=== PATIENT | male | born 2000 | race Caucasian/White ===

== ENCOUNTER 2019-04-12 17:09 | Emergency (ER) | payer BC ==
[2019-04-12 17:46] VITALS: BP 132/69
--- NOTE | 2019-04-12 17:57 | UC ---
Skin Complaint HPI - HPI Summary HPI Summary: 18-year-old male presents for multiple complaints. His first complaint is that he received multiple insect stings 2 days ago to his left upper arm, left shoulder, and right calf. States he has had an anaphylactic reaction in the past. States earlier today he felt a little lightheaded but is asymptomatic at present. Denies any swelling of the lips, tongue, throat, dysphagia, or difficulty breathing. The patient's second complaint is that he was recently notified by a new sexual partner who he had unprotected sex with 2 nights ago that she tested positive for chlamydia. He is requesting STI testing at this time. Denies abdominal pain, nausea, vomiting, dysuria, frequency, urgency, hematuria, testicular pain or swelling, penile drainage, or genital lesions. - History of Current Complaint Chief Complaint: UCGeneralIllness Time Seen by Provider: 04/12/19 17:31 Stated Complaint: BEE STINGS/SWELLING/PERSONAL Hx Obtained From: Patient Pain Intensity: 2 - Allergy/Home Medications Allergies/Adverse Reactions: Allergies Allergy/AdvReac Type Severity Reaction Status Date / Time bee venom protein (honey bee) Allergy Anaphylatic Verified 04/12/19 17:34 Shock Home Medications: Home Medications Ibuprofen TAB* [Advil TAB*] 400 mg PO Q6H PRN 04/12/19 [History Confirmed ] Riva-3 Fatty Acids [Fish Oil Concentrate] 1,000 mg PO DAILY 04/12/19 [History Confirmed 04/12/19] Root Powder 1 udc PO DAILY 04/12/19 [History Confirmed 04/12/19] diphenhydrAMINE HCl [Benadryl Allergy 25 MG CAP] 50 mg PO Q6H PRN 04/12/19 [ History Confirmed 04/12/19] PMH/Surg Hx/FS Hx/Imm Hx Previously Healthy: Yes - Denies significant PMH - Surgical History Surgical History: None Surgery Procedure, Year, and Place: nose sx - Family History Known Family History: Positive: Non-Contributory - Social History Occupation: Employed Full-time Lives: Alone Alcohol Use: Occasionally Substance Use Type: None Smoking Status (MU): Never Smoked Tobacco Review of Systems All Other Systems Reviewed And Are Negative: Yes Constitutional: Negative: Fever, Chills Skin: Positive: Other - See HPI ENT: Negative: Other - Swelling lips, tongue, or throat Respiratory: Negative: Shortness Of Breath Cardiovascular: Positive: Negative Gastrointestinal: Positive: Negative Genitourinary: Negative: Dysuria, Hematuria, Frequency, Urgency, Vaginal/Penile Discharge Musculoskeletal: Positive: Negative Neurological: Positive: Negative Is Patient Immunocompromised?: No Physical Exam - Summary Physical Exam Summary: GENERAL APPEARANCE: Well developed, well nourished, alert and cooperative, and appears to be in no acute distress. THROAT: No swelling of the lips or tongue. Pharynx normal. No tonsilar inflammation, swelling, exudate, or lesions. Uvula midline. Airway patent. NECK: Neck supple, non-tender without lymphadenopathy. CARDIAC: Normal S1 and S2. No S3, S4 or murmurs. Rhythm is regular. There is no peripheral edema, cyanosis or pallor. Extremities are warm and well perfused. Capillary refill is less than 2 seconds. Peripheral pulses intact. LUNGS: Clear to auscultation without rales, rhonchi, wheezing or diminished breath sounds. ABDOMEN: Positive bowel sounds. Soft, nondistended, nontender. No guarding or rebound. No masses or hepatosplenomegally. UROGENITAL: Normal penis. No urethral erythema or drainage noted. Testicles smooth and non-tender without edema. MUSKULOSKELETAL: ROM intact to all extremities. No joint erythema or tenderness. Normal muscular development. Normal gait. SKIN: Skin normal color, texture and turgor. 2 small areas of erythema approximately 2 cm in diameter with mild edema to the lateral right lower leg. No other lesions noted. Triage Information Reviewed: Yes Vital Signs: Initial Vital Signs Temp 97.4 F 04/12/19 17:40 Pulse 68 04/12/19 17:40 Resp 16 04/12/19 17:40 BP 132/69 04/12/19 17:40 Pulse Ox 100 04/12/19 17:40 Vital Signs Reviewed: Yes Course/Dx - Course Course Of Treatment: 18-year-old male presents for multiple complaints. His first complaint is that he received multiple insect stings 2 days ago to his left upper arm, left shoulder, and right calf. States he has had an anaphylactic reaction in the past. States earlier today he felt a little lightheaded but is asymptomatic at present. Denies any swelling of the lips, tongue, throat, dysphagia, or difficulty breathing. The patient's second complaint is that he was recently notified by a new sexual partner who he had unprotected sex with 2 nights ago that she tested positive for chlamydia. He is requesting STI testing at this time. Denies abdominal pain, nausea, vomiting, dysuria, frequency, urgency, hematuria, testicular pain or swelling, penile drainage, or genital lesions. Afebrile. Vital signs stable. Patient had 2 small areas of erythema approximately 2 cm in diameter with mild edema to the lateral right lower leg. No other lesions noted. Genital exam was normal. Remainder of exam was unremarkable. Discussed with the patient that I think that his episode of lightheadedness was unlikely an anaphylactic reaction to the insect stings 2 days ago. Recommending watchful waiting. Testing for HIV, syphilis, Chlamydia , gonorrhea was performed and is pending. Because of his exposure he was treated with Rocephin 250 mg IM and azithromycin 1 gm PO pending the results of his tests. Patient is to return here or follow up with his primary care provider in 3 days if systems persist. Anticipatory guidance and warning symptoms are reviewed with the patient. Verbalizes understanding and agrees with plan of care. - Differential Diagnoses - Skin Complaint Differential Diagnoses: Allergic Reaction, Anaphylaxis, Local Allergic Reaction , Other - STI - Diagnoses Provider Diagnosis: Insect bite or sting, Exposure to chlamydia Discharge - Sign-Out/Discharge Documenting (check all that apply): Patient Departure All imaging exams completed and their final reports reviewed: No Studies - Discharge Plan Condition: Stable Disposition: HOME Patient Education Materials: Sexually Transmitted Diseases (ED), Safe Sex (ED) , Insect Bite or Sting (ED) Referrals: No Primary Care Phys,NOPCP [Primary Care Provider] - Additional Instructions: Return here or follow-up with your primary care provider in 3 days if your symptoms are not improving. You appear to be having a localized reaction to the insect stings that you received. I do not see any evidence of severe allergic reaction (anaphylaxis). Try taking a nondrowsy [id number]-bbymiiy antihistamine such as Zyrtec, Nayeli, or Claritin twice daily to help with the inflammation and itching. We have done screening for sexually transmitted infections including HIV, syphilis, gonorrhea, and chlamydia due to your recent exposure. We will contact you with these results. We treated you for a possible sexually transmitted infection with an antibiotic called Rocephin 250 mg and a second antibiotic called azithromycin 1000 mg. You should avoid any type of sexual intercourse for the next week. Be sure to follow safe sex practices including consistently using a condom to avoid a exposure to sexually transmitted infections. Seek immediate medical attention in the emergency room if you develop swelling of the lips, tongue, throat, difficulty swallowing, difficulty breathing, or any worsening of symptoms. - Billing Disposition and Condition Condition: STABLE Disposition: Home
[2019-04-12] MEDS ORDERED: cefTRIAXone VIAL(*) 250 MG VIAL IM ONE (18:06)
[2019-04-12] MEDS ORDERED: Azithromycin TAB* 250 MG PO ONE (18:06)
[2019-04-12] MEDS ORDERED: Lidocaine 1% MPF ** 5 ML VIAL IM ONE (18:06)
[2019-04-13 14:21] LABS: HIV 4th Generation Negative (Negative)
--- NOTE | 2019-04-14 09:14 | UC ---
- Progress Note Progress Note: Lab results reviewed today HIV antibody/P 24 antigen 4th generation: Negative Syphilis IgG is pending at this time, await final report No change in plan Course/Dx - Diagnoses Provider Diagnoses: Insect bite or sting, Exposure to chlamydia Discharge - Sign-Out/Discharge Documenting (check all that apply): Post-Discharge Follow Up All imaging exams completed and their final reports reviewed: No Studies - Discharge Plan Condition: Stable Disposition: HOME Patient Education Materials: Sexually Transmitted Diseases (ED), Safe Sex (ED) , Insect Bite or Sting (ED) Referrals: No Primary Care Phys,NOPCP [Primary Care Provider] - Additional Instructions: Return here or follow-up with your primary care provider in 3 days if your symptoms are not improving. You appear to be having a localized reaction to the insect stings that you received. I do not see any evidence of severe allergic reaction (anaphylaxis). Try taking a nondrowsy [id number] antihistamine such as Zyrtec, Nayeli, or Claritin twice daily to help with the inflammation and itching. We have done screening for sexually transmitted infections including HIV, syphilis, gonorrhea, and chlamydia due to your recent exposure. We will contact you with these results. We treated you for a possible sexually transmitted infection with an antibiotic called Rocephin 250 mg and a second antibiotic called azithromycin 1000 mg. You should avoid any type of sexual intercourse for the next week. Be sure to follow safe sex practices including consistently using a condom to avoid a exposure to sexually transmitted infections. Seek immediate medical attention in the emergency room if you develop swelling of the lips, tongue, throat, difficulty swallowing, difficulty breathing, or any worsening of symptoms. - Billing Disposition and Condition Condition: STABLE Disposition: Home
[2019-04-16 13:27] LABS: Neisseria gonorrhoeae (GC) RNA Negative (Negative)
== END 2019-04-12 18:56 | disposition home or self-care (01) ==
LOC: UCCORT 17:09
DX: T63.441A Toxic effect of venom of bees, accidental (unintentional), initial encounter (principal); Y92.9 Unspecified place or not applicable; Z20.2 Contact with and (suspected) exposure to infections with a predominantly sexual mode of transmission
CPT/HCPCS: 36415; 86780; 87389; 87491; 87591; 96372; 99202; A9270-GY; G0463; J0696